=== PATIENT | male | born 1945 | race Caucasian/White ===

== ENCOUNTER 2025-03-26 13:11 | Inpatient (IN) ==
[2025-03-26] MEDS: morphine 4 MG/ML VIAL IV PRN (13:01)
[2025-03-26] MEDS ORDERED: MAGNESIUM SULFATE 2 GM/50 ML BAG IV PRN (13:30)
[2025-03-26] MEDS ORDERED: SENNOSIDES 1 TABLET PO PRN (13:30)
[2025-03-26] MEDS ORDERED: POTASSIUM CHLORIDE 20 MEQ TABLET PO PRN ×2 (13:30)
[2025-03-26] MEDS ORDERED: METOCLOPRAMIDE 10 MG/2 ML VIAL IV PRN (13:30)
[2025-03-26] MEDS ORDERED: POTASSIUM CHLORIDE 40 MEQ in DEXTROSE 5% IN WATER 500 ML IV PRN (13:30)
[2025-03-26] MEDS: 0.9 % SODIUM CHLORIDE 10 ML SYRINGE IV SCH (14:27)
[2025-03-26] MEDS: HYDROcodone/APAP 5/325MG TABLET PO PRN (14:51)
[2025-03-26] MEDS: METHOCARBAMOL 750 MG TABLET PO PRN (15:35)
[2025-03-26] MEDS: GABAPENTIN 300 MG CAPSULE PO PRN (17:01)
[2025-03-26] MEDS: HYDROmorphone 1 MG/ML SYRINGE IV PRN (17:18)
[2025-03-26] MEDS: HYDROcodone/APAP 10/325MG TABLET PO PRN (18:08)
[2025-03-26] MEDS: DOCUSATE SODIUM 100 MG CAPSULE PO SCH (21:04)
[2025-03-26] MEDS: PROPRANOLOL 80 MG CAP.XL.24H PO SCH (21:04)
[2025-03-26] MEDS: traZODone HCL 100 MG TABLET PO SCH (21:04)
[2025-03-27] MEDS: 0.9 % SODIUM CHLORIDE 1,000 ML IV ONE
[2025-03-27 06:48] LABS: Basophils # (Auto) 0 K/mcL (0.00-0.30); Basophils % (Auto) 0 % (0.0-2.0); Eosinophils # (Auto) 0.01 K/mcL (0.00-0.70); Eosinophils % (Auto) 0.1 % (0.0-7.0); Hematocrit 34.6 % (40.1-51.0); Hemoglobin 11.2 g/dL (13.7-17.5); Lymphocytes # (Auto) 0.36 K/mcL (1.50-4.80); Lymphocytes % (Auto) 2.3 % (15.5-49.0); Mean Cell Volume 99.1 fL (80.0-100.0); Mean Corpuscular HGB Conc 32.4 g/dL (31.0-36.0); Monocytes # (Auto) 0.39 K/mcL (0.10-0.90); Monocytes % (Auto) 2.4 % (1.0-12.0); Neutrophils % (Auto) 93.6 % (38.0-78.0); Platelet Count 335 K/mcL (140-440); RBC 3.49 M/mcL (4.63-6.08); Red Cell Distribution Width 14.4 % (11.5-14.5)
[2025-03-27 07:20] LABS: ALT/SGPT 48 U/L (<40); AST/SGOT 38 U/L (<40); Albumin 2.6 gm/dL (3.2-5.2); Alkaline Phosphatase 242 U/L (39-117); Bilirubin,Direct < 0.2 mg/dL (0-0.3); Bilirubin,Total < 0.2 mg/dL (0.1-1.0); Blood Urea Nitrogen 42 mg/dL (8-23); Calcium 8.4 mg/dL (8.6-10.4); Carbon Dioxide 22 mmol/L (22-30); Chloride 106 mmol/L (96-108); Globulin 2.6 gm/dL (2.2-3.7); Glomerular Filtration Rate 64; Glucose 83 mg/dL (70-105); Lactate Dehydrogenase 265 U/L (135-225); Phosphorous 4.3 mg/dL (2.5-4.5); Potassium 5.3 mmol/L (3.3-5.1); Sodium 136 mmol/L (133-145); Triglycerides 73 mg/dL (<150); Uric Acid 5.7 mg/dL (2.5-8.0)
[2025-03-27] MEDS ORDERED: KETAMINE 50 MG/ML Syringe IV ONE (08:33)
[2025-03-27] MEDS ORDERED: PROPOFOL 200 MG/20 ML VIAL IV ONE (08:33)
[2025-03-27] MEDS ORDERED: LIDOCAINE 2% PF 5 ML VIAL ONE (08:34)
[2025-03-27] MEDS ORDERED: DEXAMETHASONE 10 MG/ML VIAL ONE (08:34)
[2025-03-27] MEDS ORDERED: ONDANSETRON 4 MG/2 ML VIAL ONE (08:34)
[2025-03-27] MEDS ORDERED: TRANEXAMIC ACID 1,000 MG/10 ML VIAL ONE (08:34)
[2025-03-27] MEDS ORDERED: MAGNESIUM SULFATE 2 GM/50 ML BAG IV ONE (08:35)
[2025-03-27] MEDS ORDERED: ROCURONIUM 10 MG/ML ML IV ONE (08:35)
[2025-03-27] MEDS ORDERED: amLODIPine 5 MG TABLET PO SCH (09:00)
[2025-03-27] MEDS: PANTOPRAZOLE 40 MG TABLET PO SCH (09:22)
[2025-03-27] MEDS ORDERED: PHENYLephrine 1 MG/10 ML SYRINGE (ANEST) ONE (09:55)
[2025-03-27] MEDS ORDERED: VASOPRESSIN 20 UNIT/ML VIAL ONE (09:55)
[2025-03-27] MEDS: ceFAZolin 2 GM in DEXTROSE 5% IN WATER 50 ML IV SCH (09:56)
[2025-03-27 10:22] LABS: Band Neutrophils % 20 % (0-10); Lymphocytes % 1 % (15-49); Monocytes % (Manual) 2 % (1-12); Platelet Estimate NORMAL (Normal); RBC Morphology NORMAL (Normal); Segmented Neutrophils % 77 % (38-78)
[2025-03-27] MEDS ORDERED: SUGAMMADEX SODIUM 200 MG/2 ML VIAL IV ONE (10:46)
[2025-03-27] MEDS ORDERED: ONDANSETRON 4 MG/2 ML VIAL IV PRN (11:26)
[2025-03-27] MEDS ORDERED: IPRATROPIUM/ALBUTEROL 3 ML AMPUL.NEB NEB PRN (11:26)
[2025-03-27] MEDS ORDERED: LACTATED RINGERS 250 ML IV PRN (11:26)
[2025-03-27] MEDS ORDERED: diphenhydrAMINE 50 MG/ML VIAL IV PRN (11:26)
[2025-03-27] MEDS ORDERED: NALOXONE HCL 0.4 MG/ML VIAL IV PRN (11:26)
[2025-03-27] MEDS ORDERED: MEPERIDINE 25 MG/ML VIAL IV PRN (11:26)
[2025-03-27] MEDS: ACETAMINOPHEN 1,000 MG/100 ML BAG IV ONE (12:20)
[2025-03-27] MEDS ORDERED: FLEETS ADULT 1 DOSE ENEMA PR PRN (12:32)
[2025-03-27] MEDS ORDERED: BISACODYL 10 MG SUPP.RECT PR PRN (12:32)
[2025-03-27] MEDS ORDERED: POLYETHYLENE GLYCOL 3350 17 GM PACKET PO PRN (12:32)
[2025-03-27] MEDS: fentaNYL 100 MCG/2 ML VIAL IV PRN (12:42)
[2025-03-27] MEDS: TRANEXAMIC ACID 1,000 MG/10 ML VIAL IV ONE (12:56)
[2025-03-27] MEDS: cefTRIAXone 2 GM in DEXTROSE 5% IN WATER 50 ML IV SCH (14:02)
[2025-03-27] MEDS: ceFAZolin 1 GM VIAL IV SCH (18:03)
[2025-03-27] MEDS: DOCUSATE SODIUM 100 MG CAPSULE PO SCH (20:25)
[2025-03-27] MEDS: SENNOSIDES 1 TABLET PO SCH (20:25)
[2025-03-27] MEDS: ASPIRIN 325 MG ENTERIC COATED TABLET PO SCH (20:25)
[2025-03-27] MEDS: NICOTINE 21 MG PATCH TOPICAL SCH (20:34)
[2025-03-27] MEDS: LACTATED RINGERS 1,000 ML IV SCH (20:35)
[2025-03-28 01:57] LABS: Appearance,Urine HAZY (Clear); Bilirubin,Urine Negative (Negative); Color,Urine YELLOW; Glucose,Urine (UA) Negative (Negative); Ketones,Urine Negative (Negative); Leukocyte Esterase,Urine Negative /uL (Negative); Mucus,Urine FEW /hpf; Nitrate,Urine Negative (Negative); Protein,Urine 30 mg/dL (Negative); Specific Gravity,Urine 1.027 (1.000-1.035); Urine Blood >=1.0 mg/dL (Negative); Urine Hyaline Cast 4 /lph (0-2); Urine RBC > 182 /hpf (0-1); Urine Squamous Epithelial Cell < 1 /hpf (0-4); Urine WBC 4 /hpf (0-4); Urobilinogen,Urine Negative
[2025-03-28 07:42] LABS: ALT/SGPT 47 U/L (<40); AST/SGOT 52 U/L (<40); Albumin 2.4 gm/dL (3.2-5.2); Albumin/Globulin Ratio 0.9 (1.0-2.3); Alkaline Phosphatase 254 U/L (39-117); Bilirubin,Total < 0.2 mg/dL (0.1-1.0); Blood Urea Nitrogen 38 mg/dL (8-23); Calcium 8.1 mg/dL (8.6-10.4); Carbon Dioxide 22 mmol/L (22-30); Chloride 102 mmol/L (96-108); Globulin 2.6 gm/dL (2.2-3.7); Glomerular Filtration Rate 64; Glucose 85 mg/dL (70-105); Potassium 5.1 mmol/L (3.3-5.1); Sodium 133 mmol/L (133-145)
[2025-03-28 07:51] LABS: Basophils # (Auto) 0 K/mcL (0.00-0.30); Basophils % (Auto) 0 % (0.0-2.0); Eosinophils # (Auto) 0 K/mcL (0.00-0.70); Eosinophils % (Auto) 0 % (0.0-7.0); Hematocrit 32.2 % (40.1-51.0); Hemoglobin 10.3 g/dL (13.7-17.5); Lymphocytes # (Auto) 0.27 K/mcL (1.50-4.80); Mean Cell Volume 99.7 fL (80.0-100.0); Mean Platelet Volume 9.2 fL (8.8-12.5); Monocytes # (Auto) 0.18 K/mcL (0.10-0.90); Neutrophils % (Auto) 94.7 % (38.0-78.0); Platelet Count 296 K/mcL (140-440); RBC 3.23 M/mcL (4.63-6.08); Red Cell Distribution Width 14.4 % (11.5-14.5)
[2025-03-28] MEDS: FERROUS SULFATE 325 MG TABLET PO SCH (08:18)
[2025-03-28] MEDS: FISH OIL 1,000 MG CAPSULE PO SCH (08:18)
[2025-03-28] MEDS: NITROGLYCERIN 0.4 MG TAB.SUBL SL PRN (10:42)
[2025-03-29] MEDS: MAGNESIUM HYDROXIDE 30 ML ORAL.SUSP PO PRN (04:26)
[2025-03-29 06:53] LABS: Basophils # (Auto) 0.01 K/mcL (0.00-0.30); Basophils % (Auto) 0.1 % (0.0-2.0); Eosinophils # (Auto) 0 K/mcL (0.00-0.70); Eosinophils % (Auto) 0 % (0.0-7.0); Hematocrit 34.9 % (40.1-51.0); Hemoglobin 11.2 g/dL (13.7-17.5); Lymphocytes # (Auto) 0.51 K/mcL (1.50-4.80); Lymphocytes % (Auto) 4.4 % (15.5-49.0); Mean Cell Volume 99.4 fL (80.0-100.0); Mean Corpuscular HGB Conc 32.1 g/dL (31.0-36.0); Mean Platelet Volume 9.3 fL (8.8-12.5); Monocytes # (Auto) 0.49 K/mcL (0.10-0.90); Monocytes % (Auto) 4.2 % (1.0-12.0); Platelet Count 271 K/mcL (140-440); RBC 3.51 M/mcL (4.63-6.08); Red Cell Distribution Width 14.4 % (11.5-14.5); WBC 11.7 K/mcL (4.5-11.0)
[2025-03-29 07:26] LABS: ALT/SGPT 39 U/L (<40); AST/SGOT 48 U/L (<40); Albumin 2.5 gm/dL (3.2-5.2); Albumin/Globulin Ratio 0.8 (1.0-2.3); Alkaline Phosphatase 279 U/L (39-117); Bilirubin,Total 0.3 mg/dL (0.1-1.0); Blood Urea Nitrogen 43 mg/dL (8-23); Calcium 8.6 mg/dL (8.6-10.4); Carbon Dioxide 21 mmol/L (22-30); Chloride 99 mmol/L (96-108); Glomerular Filtration Rate 64; Glucose 120 mg/dL (70-105); Potassium 5.4 mmol/L (3.3-5.1); Sodium 131 mmol/L (133-145)
[2025-03-29] MEDS ORDERED: VANCOMYCIN PER PHARMACY IV SCH (10:25)
[2025-03-29] MEDS: VANCOMYCIN 750 MG in 0.9 % SODIUM CHLORIDE 250 ML IV SCH (11:18)
[2025-03-29] MEDS ORDERED: GADOBENATE DIMEGLUMINE 15 ML/VIAL IV ONE (16:19)
[2025-03-29] MEDS: POLYETHYLENE GLYCOL 3350 17 GM PACKET PO PRN (20:32)
[2025-03-30 08:11] LABS: Basophils # (Auto) 0 K/mcL (0.00-0.30); Basophils % (Auto) 0 % (0.0-2.0); Eosinophils # (Auto) 0 K/mcL (0.00-0.70); Eosinophils % (Auto) 0 % (0.0-7.0); Hematocrit 31.6 % (40.1-51.0); Hemoglobin 10.3 g/dL (13.7-17.5); Lymphocytes # (Auto) 0.49 K/mcL (1.50-4.80); Lymphocytes % (Auto) 2.6 % (15.5-49.0); Mean Cell Volume 99.1 fL (80.0-100.0); Mean Corpuscular HGB Conc 32.6 g/dL (31.0-36.0); Mean Platelet Volume 9.3 fL (8.8-12.5); Monocytes # (Auto) 0.77 K/mcL (0.10-0.90); Neutrophils % (Auto) 92.9 % (38.0-78.0); Platelet Count 252 K/mcL (140-440); RBC 3.19 M/mcL (4.63-6.08); Red Cell Distribution Width 14.4 % (11.5-14.5); WBC 19.1 K/mcL (4.5-11.0)
[2025-03-30 08:34] LABS: ALT/SGPT 42 U/L (<40); AST/SGOT 54 U/L (<40); Albumin 2.4 gm/dL (3.2-5.2); Albumin/Globulin Ratio 0.8 (1.0-2.3); Alkaline Phosphatase 251 U/L (39-117); Bilirubin,Total 0.3 mg/dL (0.1-1.0); Blood Urea Nitrogen 42 mg/dL (8-23); Calcium 8.2 mg/dL (8.6-10.4); Carbon Dioxide 20 mmol/L (22-30); Chloride 102 mmol/L (96-108); Glomerular Filtration Rate 81; Glucose 95 mg/dL (70-105); Potassium 5.7 mmol/L (3.3-5.1); Sodium 132 mmol/L (133-145)
[2025-03-30] MEDS: VANCOMYCIN 1,000 MG in 0.9 % SODIUM CHLORIDE 250 ML IV SCH (10:11)
[2025-03-30] MEDS: IPRATROPIUM/ALBUTEROL 3 ML AMPUL.NEB NEB PRN (11:58)
[2025-03-30] MEDS: METOPROLOL TARTRATE 5 MG/5 ML VIAL IV PRN (12:19)
[2025-03-30] MEDS: 0.9 % SODIUM CHLORIDE 1,000 ML IV SCH (12:22)
[2025-03-30] MEDS: FUROSEMIDE 20 MG/2 ML VIAL IV ONE (12:28)
[2025-03-30] MEDS ORDERED: IOPAMIDOL 100 ML BOTTLE IV ONE (15:37)
[2025-03-30] MEDS: ceFAZolin 1 GM VIAL IV SCH (15:52)
[2025-03-30] MEDS: DILTIAZEM 125 MG in DEXTROSE 5% IN WATER 100 ML IV SCH (18:16)
[2025-03-30 18:34] LABS: Potassium 5.8 mmol/L (3.3-5.1)
[2025-03-30] MEDS: SODIUM ZIRCONIUM CYCLOSILICATE 10 GM PACKET PO ONE (19:30)
[2025-03-30] MEDS: METOPROLOL TARTRATE 25 MG TABLET PO SCH (20:05)
[2025-03-30] MEDS: APIXABAN 5 MG TABLET PO SCH (20:09)
[2025-03-30 20:18] LABS: Appearance,Urine HAZY (Clear); Bilirubin,Urine Negative (Negative); Color,Urine YELLOW; Glucose,Urine (UA) Negative (Negative); Ketones,Urine Negative (Negative); Leukocyte Esterase,Urine Negative /uL (Negative); Mucus,Urine FEW /hpf; Nitrate,Urine Negative (Negative); Other Casts,Urine FEW /lph; Protein,Urine Negative (Negative); Urine Granular Cast 3 /lph (0-0); Urine Hyaline Cast 4 /lph (0-2); Urine RBC 5 /hpf (0-3); Urine Squamous Epithelial Cell < 1 /hpf (0-4); Urine WBC 8 /hpf (0-4); Urobilinogen,Urine Negative
[2025-03-30] MEDS ORDERED: METOPROLOL TARTRATE 25 MG TABLET PO SCH (21:00)
[2025-03-30] MEDS: METOPROLOL TARTRATE 50 MG TABLET PO ONE ×2 (21:03→21:22)
[2025-03-30 22:14] LABS: POC Calcium, Ionized 1.09 (1.16-1.32); POC Creatinine 1.3 (0.6-1.2); POC Potassium 5.7 (3.3-5.1)
[2025-03-31] MEDS: SODIUM ZIRCONIUM CYCLOSILICATE 10 GM PACKET PO SCH (00:36)
[2025-03-31] MEDS: ACETAMINOPHEN 325 MG TABLET PO PRN (05:23)
[2025-03-31 06:07] LABS: Basophils # (Auto) 0.01 K/mcL (0.00-0.30); Basophils % (Auto) 0 % (0.0-2.0); Eosinophils # (Auto) 0 K/mcL (0.00-0.70); Eosinophils % (Auto) 0 % (0.0-7.0); Hematocrit 32.9 % (40.1-51.0); Hemoglobin 10.5 g/dL (13.7-17.5); Lymphocytes # (Auto) 0.89 K/mcL (1.50-4.80); Lymphocytes % (Auto) 3.9 % (15.5-49.0); Mean Cell Volume 99.1 fL (80.0-100.0); Mean Corpuscular HGB Conc 31.9 g/dL (31.0-36.0); Mean Platelet Volume 9.4 fL (8.8-12.5); Monocytes # (Auto) 0.79 K/mcL (0.10-0.90); Monocytes % (Auto) 3.5 % (1.0-12.0); Neutrophils % (Auto) 91.4 % (38.0-78.0); Platelet Count 297 K/mcL (140-440); RBC 3.32 M/mcL (4.63-6.08); Red Cell Distribution Width 14.5 % (11.5-14.5); WBC 22.9 K/mcL (4.5-11.0)
[2025-03-31 06:40] LABS: ALT/SGPT 85 U/L (<40); AST/SGOT 181 U/L (<40); Albumin 2.4 gm/dL (3.2-5.2); Albumin/Globulin Ratio 0.8 (1.0-2.3); Alkaline Phosphatase 304 U/L (39-117); Bilirubin,Total 0.3 mg/dL (0.1-1.0); Blood Urea Nitrogen 46 mg/dL (8-23); Carbon Dioxide 20 mmol/L (22-30); Chloride 103 mmol/L (96-108); Glomerular Filtration Rate 64; Glucose 94 mg/dL (70-105); Potassium 5.8 mmol/L (3.3-5.1); Sodium 134 mmol/L (133-145)
[2025-03-31] MEDS: METOPROLOL TARTRATE 50 MG TABLET PO SCH (09:18)
[2025-03-31 16:02] LABS: Potassium 5.1 mmol/L (3.3-5.1)
[2025-04-01 06:44] LABS: Basophils # (Auto) 0.02 K/mcL (0.00-0.30); Basophils % (Auto) 0.1 % (0.0-2.0); Eosinophils # (Auto) 0 K/mcL (0.00-0.70); Eosinophils % (Auto) 0 % (0.0-7.0); Hematocrit 31.2 % (40.1-51.0); Hemoglobin 9.8 g/dL (13.7-17.5); Lymphocytes # (Auto) 0.62 K/mcL (1.50-4.80); Lymphocytes % (Auto) 2.7 % (15.5-49.0); Mean Cell Volume 101.6 fL (80.0-100.0); Mean Corpuscular HGB Conc 31.4 g/dL (31.0-36.0); Mean Platelet Volume 9.5 fL (8.8-12.5); Monocytes # (Auto) 0.83 K/mcL (0.10-0.90); Monocytes % (Auto) 3.6 % (1.0-12.0); Neutrophils % (Auto) 91.7 % (38.0-78.0); Platelet Count 330 K/mcL (140-440); RBC 3.07 M/mcL (4.63-6.08); Red Cell Distribution Width 14.4 % (11.5-14.5)
[2025-04-01 06:52] LABS: ALT/SGPT 40 U/L (<40); AST/SGOT 71 U/L (<40); Albumin/Globulin Ratio 0.7 (1.0-2.3); Alkaline Phosphatase 212 U/L (39-117); Bilirubin,Total 0.3 mg/dL (0.1-1.0); Blood Urea Nitrogen 40 mg/dL (8-23); Calcium 7.6 mg/dL (8.6-10.4); Carbon Dioxide 19 mmol/L (22-30); Chloride 107 mmol/L (96-108); Globulin 2.7 gm/dL (2.2-3.7); Glomerular Filtration Rate 81; Glucose 77 mg/dL (70-105); Potassium 4.9 mmol/L (3.3-5.1); Sodium 137 mmol/L (133-145)
[2025-04-01] MEDS: LIDOCAINE 4% TOP PATCH TOPICAL SCH (09:47)
[2025-04-01] MEDS: DILTIAZEM 125 MG in DEXTROSE 5% IN WATER 100 ML IV SCH (09:47)
[2025-04-01] MEDS: NAFCILLIN 2 GM in 0.9 % SODIUM CHLORIDE 50 ML IV SCH (13:34)
[2025-04-01] MEDS: MEROPENEM 1 GM in 0.9 % SODIUM CHLORIDE 50 ML IV SCH (14:11)
[2025-04-01] MEDS: NOREPINEPHRINE BITARTRATE 16 MG in 0.9 % SODIUM CHLORIDE 234 ML IV SCH (23:09)
[2025-04-01] MEDS: 0.9 % SODIUM CHLORIDE 250 ML IV SCH (23:20)
[2025-04-01] MEDS: NOREPINEPHRINE 250 ML IV SCH (23:20)
[2025-04-01] MEDS: NOREPINEPHRINE 250 ML IV ONE (23:29)
[2025-04-02 06:53] LABS: Basophils # (Auto) 0.01 K/mcL (0.00-0.30); Basophils % (Auto) 0 % (0.0-2.0); Eosinophils # (Auto) 0 K/mcL (0.00-0.70); Eosinophils % (Auto) 0 % (0.0-7.0); Hematocrit 34.3 % (40.1-51.0); Hemoglobin 10.9 g/dL (13.7-17.5); Lymphocytes # (Auto) 0.99 K/mcL (1.50-4.80); Lymphocytes % (Auto) 3.6 % (15.5-49.0); Mean Cell Volume 99.4 fL (80.0-100.0); Mean Corpuscular HGB Conc 31.8 g/dL (31.0-36.0); Mean Platelet Volume 9.3 fL (8.8-12.5); Monocytes # (Auto) 1.18 K/mcL (0.10-0.90); Monocytes % (Auto) 4.3 % (1.0-12.0); Neutrophils % (Auto) 89.9 % (38.0-78.0); Platelet Count 492 K/mcL (140-440); RBC 3.45 M/mcL (4.63-6.08); Red Cell Distribution Width 14.6 % (11.5-14.5); WBC 27.2 K/mcL (4.5-11.0)
[2025-04-02 06:54] LABS: ALT/SGPT 38 U/L (<40); AST/SGOT 67 U/L (<40); Albumin 2.3 gm/dL (3.2-5.2); Albumin/Globulin Ratio 0.8 (1.0-2.3); Alkaline Phosphatase 224 U/L (39-117); Bilirubin,Total 0.4 mg/dL (0.1-1.0); Blood Urea Nitrogen 54 mg/dL (8-23); Carbon Dioxide 22 mmol/L (22-30); Chloride 108 mmol/L (96-108); Globulin 2.8 gm/dL (2.2-3.7); Glomerular Filtration Rate 52; Glucose 105 mg/dL (70-105); Sodium 140 mmol/L (133-145)
[2025-04-02] MEDS: SODIUM ZIRCONIUM CYCLOSILICATE 10 GM PACKET PO SCH (09:01)
[2025-04-02] MEDS ORDERED: DILTIAZEM 125 MG in DEXTROSE 5% IN WATER 100 ML IV PRN (10:21)
[2025-04-02] MEDS: METOPROLOL TARTRATE 5 MG/5 ML VIAL IV PRN (15:44)
[2025-04-02] MEDS: ONDANSETRON 4 MG/2 ML VIAL IV PRN (16:53)
[2025-04-02] MEDS: AMIODARONE 150 MG in DEXTROSE 5% IN WATER 50 ML IV ONE (20:30)
[2025-04-02] MEDS: AMIODARONE 360 MG in PREMIX 1 BAG IV SCH (20:31)
[2025-04-02] MEDS: AMIODARONE 360 MG/200 ML BAG IV ONE (21:32)
[2025-04-02] MEDS: AMIODARONE 150 MG/3 ML VIAL ONE (21:32)
[2025-04-02] MEDS: HEPARIN 5,000 UNIT/ML VIAL SQ SCH (22:01)
[2025-04-02] MEDS: ALBUMIN HUMAN 12.5 GM/50 ML VIAL IV ONE (22:01)
[2025-04-03] MEDS: AMIODARONE 360 MG in PREMIX 1 BAG IV SCH (01:59)
[2025-04-03] MEDS: AMIODARONE 360 MG/200 ML BAG IV ONE ×2 (02:04→15:27)
[2025-04-03 06:32] LABS: Hematocrit 32.5 % (40.1-51.0); Hemoglobin 10.2 g/dL (13.7-17.5); Mean Cell Volume 100.6 fL (80.0-100.0); Mean Corpuscular HGB Conc 31.4 g/dL (31.0-36.0); Mean Platelet Volume 9.2 fL (8.8-12.5); Platelet Count 488 K/mcL (140-440); RBC 3.23 M/mcL (4.63-6.08); Red Cell Distribution Width 15.3 % (11.5-14.5); WBC 21.8 K/mcL (4.5-11.0)
[2025-04-03 07:05] LABS: Band Neutrophils % 7 % (0-10); Lymphocytes % 6 % (15-49); Monocytes % (Manual) 1 % (1-12); Platelet Estimate INCREASED (Normal); RBC Morphology NORMAL (Normal); Segmented Neutrophils % 86 % (38-78)
[2025-04-03 07:06] LABS: ALT/SGPT 23 U/L (<40); AST/SGOT 37 U/L (<40); Albumin 2.3 gm/dL (3.2-5.2); Albumin/Globulin Ratio 0.9 (1.0-2.3); Alkaline Phosphatase 181 U/L (39-117); Bilirubin,Direct 0.2 mg/dL (<0.3); Bilirubin,Total 0.3 mg/dL (0.1-1.0); Blood Urea Nitrogen 49 mg/dL (8-23); Calcium 7.5 mg/dL (8.6-10.4); Carbon Dioxide 20 mmol/L (22-30); Chloride 106 mmol/L (96-108); Globulin 2.6 gm/dL (2.2-3.7); Glomerular Filtration Rate 57; Glucose 107 mg/dL (70-105); Lactate Dehydrogenase 242 U/L (135-225); Phosphorous 3.6 mg/dL (2.5-4.5); Potassium 4.1 mmol/L (3.3-5.1); Sodium 138 mmol/L (133-145); Triglycerides 148 mg/dL (<150); Uric Acid 7.4 mg/dL (2.5-8.0)
[2025-04-03] MEDS ORDERED: 0.9 % SODIUM CHLORIDE 10 ML SYRINGE IV PRN (08:00)
[2025-04-03] MEDS: ALBUMIN HUMAN 12.5 GM/50 ML VIAL IV ONE ×2 (08:19→13:06)
[2025-04-03] MEDS: FUROSEMIDE 100 MG/10 ML VIAL IV ONE (08:43)
[2025-04-03] MEDS ORDERED: HEPARIN 10 UNITS/ML 5ML FLUSH IV ONE (10:38)
[2025-04-03] MEDS ORDERED: SODIUM CHLORIDE IRRIG SOLUTION 250 ML BOTTLE IRR ONE (10:38)
[2025-04-03] MEDS ORDERED: LIDOCAINE 1% 20 ML VIAL SQ ONE (10:38)
[2025-04-03] MEDS: HEPARIN 10 UNITS/ML 5ML FLUSH IV SCH ×2 (10:57→11:05)
[2025-04-03] MEDS: 0.9 % SODIUM CHLORIDE 10 ML SYRINGE IV SCH (11:05)
[2025-04-03] MEDS: SUMAtriptan SUCCINATE 50 MG TABLET PO PRN (11:21)
[2025-04-03] MEDS: DILTIAZEM 240 MG CAP.XL.24H PO ONE (12:09)
[2025-04-03 13:01] LABS: Appearance, Body Fluid Turbid; Color, Body Fluid Red; Nucleated Cells,Body Fld 96500 /cumm
[2025-04-03 15:43] VITALS: TEMP 100
[2025-04-03 16:33] VITALS: O2SAT 93
== END 2025-04-03 16:55 | disposition short-term general hospital (02) | DRG 853 ==
LOC: MEDSUR 14:02 → ICU 03-30 14:36
PROVIDERS: ADMIT Internal Medicine; ATTEND Internal Medicine

== ENCOUNTER 2025-05-25 22:12 | Inpatient (IN) ==
[2025-05-25] MEDS: IPRATROPIUM/ALBUTEROL 3 ML AMPUL.NEB NEB ONE (23:10)
[2025-05-26 00:22] LABS: Basophils # (Auto) 0.01 K/mcL (0.00-0.30); Basophils % (Auto) 0.1 % (0.0-2.0); Eosinophils # (Auto) 0 K/mcL (0.00-0.70); Eosinophils % (Auto) 0 % (0.0-7.0); Hematocrit 24.2 % (40.1-51.0); Hemoglobin 7.2 g/dL (13.7-17.5); Lymphocytes # (Auto) 0.37 K/mcL (1.50-4.80); Lymphocytes % (Auto) 5.4 % (15.5-49.0); Mean Corpuscular HGB Conc 29.8 g/dL (31.0-36.0); Monocytes # (Auto) 0.19 K/mcL (0.10-0.90); Monocytes % (Auto) 2.8 % (1.0-12.0); Neutrophils % (Auto) 91.0 % (38.0-78.0); Platelet Count 279 K/mcL (140-440); RBC 2.36 M/mcL (4.63-6.08); WBC 6.8 K/mcL (4.5-11.0)
[2025-05-26 00:45] LABS: ALT/SGPT 10 U/L (<40); AST/SGOT 27 U/L (<40); Albumin 2.7 gm/dL (3.2-5.2); Albumin/Globulin Ratio 1.0 (1.0-2.3); Alkaline Phosphatase 96 U/L (39-117); Anion Gap 18.0 (8.0-16.0); Bilirubin,Total 0.2 mg/dL (0.1-1.0); Blood Urea Nitrogen 66 mg/dL (8-23); Calcium 8.3 mg/dL (8.6-10.4); Carbon Dioxide 24 mmol/L (22-30); Chloride 94 mmol/L (96-108); Globulin 2.7 gm/dL (2.2-3.7); Glucose 74 mg/dL (70-105); Potassium 3.5 mmol/L (3.3-5.1); Sodium 136 mmol/L (133-145)
[2025-05-26] MEDS: 0.9 % SODIUM CHLORIDE 500 ML IV ONE (00:56)
[2025-05-26] MEDS ORDERED: ONDANSETRON 4 MG/2 ML VIAL IV PRN ×2 (03:32→08:05)
[2025-05-26] MEDS ORDERED: IPRATROPIUM/ALBUTEROL 3 ML AMPUL.NEB NEB PRN (03:32)
[2025-05-26 03:43] LABS: Bacteria,Urine FEW /hpf (0); Bilirubin,Urine Negative (Negative); Color,Urine Yellow; Glucose,Urine (UA) Negative (Negative); Ketones,Urine Negative (Negative); Leukocyte Esterase,Urine Small /uL (Negative); Mucus,Urine FEW /hpf; PH,Urine 5.5 (5.0-9.0); Protein,Urine 100 mg/dL (Negative); Specific Gravity,Urine 1.010 (1.000-1.035); Urobilinogen,Urine Normal
[2025-05-26] MEDS: FUROSEMIDE 100 MG/10 ML VIAL IV ONE (04:07)
[2025-05-26 06:02] LABS: Basophils # (Auto) 0 K/mcL (0.00-0.30); Basophils % (Auto) 0 % (0.0-2.0); Eosinophils # (Auto) 0 K/mcL (0.00-0.70); Eosinophils % (Auto) 0 % (0.0-7.0); Hematocrit 25.9 % (40.1-51.0); Hemoglobin 7.8 g/dL (13.7-17.5); Lymphocytes # (Auto) 0.15 K/mcL (1.50-4.80); Lymphocytes % (Auto) 2.2 % (15.5-49.0); Mean Corpuscular HGB Conc 30.1 g/dL (31.0-36.0); Monocytes # (Auto) 0.04 K/mcL (0.10-0.90); Monocytes % (Auto) 0.6 % (1.0-12.0); Neutrophils % (Auto) 96.6 % (38.0-78.0); Platelet Count 295 K/mcL (140-440); RBC 2.51 M/mcL (4.63-6.08); WBC 6.8 K/mcL (4.5-11.0)
[2025-05-26 06:50] LABS: ALT/SGPT 10 U/L (<40); AST/SGOT 31 U/L (<40); Albumin 2.5 gm/dL (3.2-5.2); Albumin/Globulin Ratio 0.8 (1.0-2.3); Alkaline Phosphatase 98 U/L (39-117); Anion Gap 18.0 (8.0-16.0); Bilirubin,Direct < 0.2 mg/dL (0-0.3); Bilirubin,Total 0.2 mg/dL (0.1-1.0); Blood Urea Nitrogen 70 mg/dL (8-23); Calcium 8.6 mg/dL (8.6-10.4); Carbon Dioxide 24 mmol/L (22-30); Chloride 94 mmol/L (96-108); Globulin 3.2 gm/dL (2.2-3.7); Glucose 81 mg/dL (70-105); Phosphorous 6.5 mg/dL (2.5-4.5); Potassium 3.9 mmol/L (3.3-5.1); Sodium 136 mmol/L (133-145); Triglycerides 73 mg/dL (<150); Uric Acid 9.5 mg/dL (2.5-8.0)
[2025-05-26] MEDS ORDERED: LIDOCAINE 4% TOP PATCH TOPICAL PRN (08:03)
[2025-05-26] MEDS ORDERED: ACETAMINOPHEN 325 MG TABLET PO PRN (08:05)
[2025-05-26] MEDS ORDERED: POTASSIUM CHLORIDE 20 MEQ TABLET PO PRN ×2 (08:05)
[2025-05-26] MEDS ORDERED: SENNOSIDES 1 TABLET PO PRN (08:05)
[2025-05-26] MEDS ORDERED: METOCLOPRAMIDE 10 MG/2 ML VIAL IV PRN (08:05)
[2025-05-26] MEDS ORDERED: METOPROLOL TARTRATE 5 MG/5 ML VIAL IV PRN (08:05)
[2025-05-26] MEDS ORDERED: POLYETHYLENE GLYCOL 3350 17 GM PACKET PO PRN (08:05)
[2025-05-26] MEDS ORDERED: POTASSIUM CHLORIDE 40 MEQ in DEXTROSE 5% IN WATER 500 ML IV PRN (08:05)
[2025-05-26] MEDS: ALBUMIN HUMAN 12.5 GM/50 ML VIAL IV SCH (08:52)
[2025-05-26] MEDS: APIXABAN 2.5 MG TABLET PO SCH (08:53)
[2025-05-26] MEDS: GABAPENTIN 100 MG CAPSULE PO SCH (08:53)
[2025-05-26] MEDS: PANTOPRAZOLE 40 MG TABLET PO SCH (08:53)
[2025-05-26] MEDS: AMIODARONE HCL 200 MG TABLET PO SCH (08:53)
[2025-05-26] MEDS: DOCUSATE SODIUM 100 MG CAPSULE PO SCH (08:53)
[2025-05-26] MEDS: ESCITALOPRAM 10 MG TABLET PO SCH (08:53)
[2025-05-26] MEDS: METOPROLOL SUCCINATE 25 MG TAB.XL.24H PO SCH (08:53)
[2025-05-26] MEDS: METOLAZONE 2.5 MG TABLET PO SCH (08:53)
[2025-05-26] MEDS: IPRATROPIUM/ALBUTEROL 3 ML AMPUL.NEB NEB PRN (09:22)
[2025-05-26] MEDS: BUDESONIDE 0.5 MG/2 ML AMPUL.NEB NEB SCH (09:22)
[2025-05-26] MEDS: AZITHROMYCIN 500 MG in DEXTROSE 5% IN WATER 250 ML IV SCH (09:24)
[2025-05-26] MEDS: FUROSEMIDE 100 MG/10 ML VIAL IV SCH (09:24)
[2025-05-26] MEDS: METHOCARBAMOL 500 MG TABLET PO SCH (10:23)
[2025-05-26] MEDS: cefTRIAXone 1 GM VIAL IV SCH (10:24)
[2025-05-26 10:29] LABS: Folate > 20.0 ng/mL (4.2-19.9)
[2025-05-26] MEDS: MAGNESIUM SULFATE 2 GM/50 ML BAG IV PRN (11:25)
[2025-05-26 12:16] LABS: INR 1.6 (0.9-1.1); Prothrombin Time 20.2 sec (11.9-14.5)
[2025-05-26 21:09] VITALS: TEMP 97.2
[2025-05-27 01:36] VITALS: O2SAT 93
== END 2025-05-27 07:55 | disposition expired | DRG 291 ==
LOC: ED 22:12 → ICU 05-26 04:15
PROVIDERS: ADMIT Internal Medicine; ATTEND Internal Medicine